=== PATIENT | female | born 1970 | race African-American/Black ===

== ENCOUNTER 2022-08-12 10:44 | Emergency (ER) | payer BC, MEDICAID ==
[~2022-08-12] VITALS: Ht 157.5 cm; Wt 77.3 kg
[2022-08-12 11:32] VITALS: O2SAT 98
[2022-08-12] MEDS ORDERED: HYDR-459 MT (12:07)
[2022-08-12 12:28] VITALS: BP 129/86; PULSE 87; RESP 18; TEMP 98.5
== END 2022-08-12 13:55 | disposition home or self-care (01) ==
LOC: ER 13:52
DX: F41.9 Anxiety disorder, unspecified (principal); I10 Essential (primary) hypertension; Z91.199 Patient's noncompliance with other medical treatment and regimen due to unspecified reason; Z00.00 Encounter for general adult medical examination without abnormal findings
CPT/HCPCS: 99283

== ENCOUNTER 2024-11-07 09:05 | Emergency (ER) | payer BC, MEDICAID ==
[~2024-11-07] VITALS: Ht 162.6 cm; Wt 82.0 kg
[~2024-11-07 09:05] MED LIST: HYDR-459 MT
[2024-11-07 09:11] VITALS: O2SAT 97
[2024-11-07] MEDS ORDERED: METH4TAB95 MT (11:35)
[2024-11-07 11:58] VITALS: BP 146/82; PULSE 88; RESP 18; TEMP 37.1; O2SAT 97
[2024-11-07 12:41] LABS: INFLUENZA TYPE A Presumptive Negative (Pres. Neg.); INFLUENZA TYPE B Presumptive Negative (Pres. Neg.)
== END 2024-11-07 11:58 | disposition home or self-care (01) ==
LOC: ER 09:05
DX: J11.1 Influenza due to unidentified influenza virus with other respiratory manifestations (principal); I10 Essential (primary) hypertension; Z20.822 Contact with and (suspected) exposure to COVID-19
CPT/HCPCS: 71045; 87426; 87804; 99284